=== PATIENT | female | born 1930 | race Caucasian/White ===

== ENCOUNTER 2018-01-21 09:53 | Emergency (ER) | payer OTHER, MEDICARE ==
[~2018-01-21] VITALS: Ht 152.4 cm; Wt 70.1 kg
[2018-01-21 10:44] LABS: INTER. NORMALIZED RATIO 2.7
[2018-01-21 10:46] LABS: CHLORIDE 110 mEq/L (99-109); HEMOGLOBIN 12.6 G/DL (11.9-15.5); MCH 26.9 PG (29.0-34.0); MCHC 33.2 G/DL (30.0-36.0); PLATELET COUNT 140 K/uL (156-360); RBC DIS.WIDTH-CV 17.2 % (11.8-14.6); RBC DIS.WIDTH-SD 50.9 % (39-53); RED BLOOD COUNT 4.69 M/uL (3.80-5.20); WHITE BLOOD COUNT 5.1 K/uL (4.1-10.2)
[2018-01-21 10:47] LABS: POTASSIUM 4.3 mEq/L (3.7-5.4); SODIUM 143 mEq/L (136-147)
[2018-01-21 10:48] LABS: GLUCOSE 98 mg/dL (70-99)
[2018-01-21 10:52] LABS: GFR ESTIMATE (CALCULATED) 55 mL/min/
[2018-01-21 10:53] LABS: UREA NITROGEN (BUN) 24 mg/dL (9-23)
[2018-01-21 13:00] VITALS: BP 156/66
== END 2018-01-21 13:36 | disposition home or self-care (01) ==
LOC: EME 09:53
PROVIDERS: Emergency Medicine
DX: S30.0XXA Contusion of lower back and pelvis, initial encounter (principal); S40.022A Contusion of left upper arm, initial encounter; W18.30XA Fall on same level, unspecified, initial encounter; I10 Essential (primary) hypertension; K21.9 Gastro-esophageal reflux disease without esophagitis; Z85.9 Personal history of malignant neoplasm, unspecified; Z90.10 Acquired absence of unspecified breast and nipple; Z88.0 Allergy status to penicillin
CPT/HCPCS: 70450; 72100; 73060; 80048; 85027; 85610; 99281; 99284